=== PATIENT | male | born 1995 ===

== ENCOUNTER 2025-06-21 06:44 | Emergency (ER) | payer OTHER, SELFPAY ==
[2025-06-21 06:53] VITALS: BP 160/91; PULSE 80; RESP 16; TEMP 36.1; O2SAT 98; BMI 43.4
--- NOTE | 2025-06-21 07:06 | ED_ITS ---
HPI - Abdominal Pain General Chief Complaint: Abdominal Pain Stated Complaint: Abd Pain Time Seen by Provider: 06/21/25 07:06 Source: patient Mode of arrival: ambulatory Limitations: no limitations History of Present Illness ED Provider: HPI narrative: This is a 29-year-old male reports history of GI issues when he was younger, presenting with direct epigastric pain started in the morning did not get better with Tums, ate pizza with jalapeno peppers. No fevers or chills no chest pain no shortness of breath. No nausea no vomiting no hematemesis or hematochezia. Related Data Previous Rx's ?Medication ?Instructions ?Recorded famotidine 40 mg tablet 40 mg PO BEDTIME #30 tabs ondansetron 4 mg disintegrating 4 mg PO Q8H PRN nausea and 06/21/25 tablet vomiting #4 tabs sucralfate 1 gram tablet (Carafate) 1 g PO Q6H 7 days #28 tabs 06/21/25 Allergies Allergy/AdvReac Type Severity Reaction Status Date / Time No Known Allergies Allergy Verified 06/21/25 06:55 Review of Systems Constitutional: Reports as per [facility] Social History Social History Advance Directives: No Advance Directives Information Provided: Yes Physical Exam ED Vital Signs: Vital Signs - 24 hr 06/21/25 06:53 06/21/25 09:30 Temperature 97 F 97.7 F Pulse Rate 80 56 Respiratory Rate 16 18 Blood Pressure 160/91 H 123/70 Pulse Oximetry 98 97 Oxygen Delivery Method Room Air Room Air BMI result Body Mass Index 43.4 Const Other: * Gen: ?Overall well-appearing patient * HEENT: PERRLA, EOMI, MMM, * Neck: Supple, no LAD * CV: RRR, no obvious murmurs appreciated * Resp: ?No wheezing rales rhonchi no stridor moving air well * Abd: ?Bowel sounds are present, minimal epigastric tenderness no rebound no rigidity * MSK: FROM, strength 5/5 all extremities * Skin: Warm, dry, intact, * Neuro: ?Alert and oriented x3, moving upper and lower extremities symmetrically, no obvious facial asymmetry noted Medical Decision Making Medical Decision Making [facility] Narrative: Patient is presenting with fairly isolated epigastric discomfort due to spicy food before bedtime, consideration for workup as below, did not feel further imaging such as ultrasound or CAT scan is indicated we will medicate, and we will re-evaluate. No hematemesis or hematochezia reported to suspect upper GI bleed. 9:29 AM 06/21/2025 (Dr. Sohail aHll): Patient did not feel better with p.o. meds advanced to IV meds and fluids blood work reassuring 10:48 AM 06/21/2025 (Dr. Sohail Hall): Patient re-evaluated, he is feeling better, see my discharge instructions, abdominal exam is benign Differential Diagnosis Differential Diagnoses: The differential diagnosis associated with the presentation includes (Cholecystitis, pancreatitis, hepatitis, gastritis, cholangitis, choledocholithiasis, SBO, ACS) Admission/Observation Consideration of admission/observation: Escalation of care including admission/observation considered Lab Data 06/21/25 07:28 06/21/25 07:28 Labs: Lab Results 06/21/25 Range/Units 07:28 WBC 6.3 (4.8-10.8) X10*3/uL RBC 4.71 (4.60-5.80) X10*6/uL Hgb 14.8 (14.0-18.0) g/dl Hct 41.1 L (42.0-52.0) % MCV 87.3 (80.0-98.0) fL MCH 31.4 (27.0-33.0) pg MCHC 36.0 (31.0-36.0) g/dl RDW 12.7 (11.0-16.0) % Plt Count 185 (160-400) X10*3/uL MPV 9.9 (9.4-12.4) fL Immature Gran % (Auto) 0.3 (0.0-0.4) % Neut % (Auto) 57.9 (45-73) % Lymph % (Auto) 31.3 (20-40) % [place] % (Auto) 8.1 (2-11) % Eos % (Auto) 1.9 (0-4) % Baso % (Auto) 0.5 (0-2) % Lymph # (Auto) 2.0 (1.2-4.9) X10*3/uL [place] # (Auto) 0.5 (0.1-1.2) X10*3/uL Eos # (Auto) 0.1 (0.0-0.4) X10*3/uL Baso # (Auto) 0.0 (0.0-0.2) X10*3/uL Abs Immat Gran (auto) 0.02 (0.00-0.03) X10*3/uL Absolute Neuts (auto) 3.6 (2.0-8.3) x10*3/uL Absolute Nucleated RBC 0.000 (0.0-0.012) X10*3/uL Nucleated RBC % (auto) 0.0 (0.0-0.2) /100WBC Sodium 138 (135-145) mmol/L Potassium 4.0 (3.3-5.1) mmol/L Chloride 109 H (96-108) mmol/L Carbon Dioxide 23 (22-29) mmol/L Anion Gap 10 L (12-20) BUN 31 H (9-16) mg/dL Creatinine 1.30 (0.5-1.4) mg/dL Estim Creat Clear Calc 124.0 Estimated GFR > 60 Random Glucose 153 H (60-115) mg/dL Calcium 8.7 (8.4-10.2) mg/dL Total Bilirubin 0.5 (0.0-1.0) mg/dL AST 81 H (5-37) U/L ALT 72 H (0-40) U/L Alkaline Phosphatase 114 (39-117) U/L Total Protein 6.7 (6.5-8.0) g/dL Albumin 4.1 (3.5-5.0) g/dL Lipase 34 (8-78) U/L Tests considered The following testing was considered but not selected: CAT scan abdomen and pelvis with IV contrast Prescription Management I considered prescription management with: Pain Medication Medications Administered Discontinued Medications Generic Name Dose Route Start Last Admin Trade Name Freq PRN Reason Stop Dose Admin Al Hydroxide/Mg Hydroxide 30 ml 06/21/25 07:19 06/21/25 07:29 Magnesium Hydrox/Alum Hydrox 30 Ml Oral.Susp PO 06/21/25 07:20 30 ml ONCE ONE Administration Belladonna Alkaloids/Phenobarbital 10 ml 06/21/25 07:19 06/21/25 07:30 Phenobarb/Hyoscy/Atropine/Scop 10 Ml Elixir PO 06/21/25 07:20 10 ml ONCE ONE Administration Famotidine 40 mg 06/21/25 09:10 06/21/25 09:19 Famotidine/Pf 20 Mg/2 Ml Vial IVPUSH 06/21/25 09:11 40 mg ONCE ONE Administration Sodium Chloride 1,000 mls @ 999 mls/hr 06/21/25 09:15 06/21/25 10:20 Ns IV 06/21/25 10:15 Infused .Q1H1M SERA Infusion Acetaminophen 1,000 mg in 100 mls @ 400 mls/hr 06/21/25 09:10 06/21/25 09:40 Ofirmev IV 06/21/25 09:24 Infused ONCE ONE Infusion Ketorolac Tromethamine 15 mg 06/21/25 09:10 06/21/25 09:19 Ketorolac Tromethamine 15 Mg/Ml Vial IVPUSH 06/21/25 09:11 15 mg ONCE ONE Administration Lidocaine HCl 15 ml 06/21/25 07:19 06/21/25 07:29 Lidocaine Hcl Viscous 2 % 15 Ml Solution PO 06/21/25 07:20 15 ml ONCE ONE Administration Sucralfate 1 gm 06/21/25 07:19 06/21/25 07:29 Sucralfate Oral Suspension 1 Gm/10 Ml Oral.Susp PO 06/21/25 07:20 1 gm ONCE ONE Administration Discharge Plan Discharge Clinical Impression: Abdominal pain, acute, epigastric Patient Disposition: Home, Self-Care Instructions: Epigastric Pain (ED) Additional Instructions: Take Carafate 20 minutes before any meals for the next 1 week, I discussed that it is good to eat and regular basis and not keep the stomach empty but make sure that you stick to the diet that we discussed, and famotidine before bedtime out just continue taking it as for acid suppression, Zofran use as needed for nausea and vomiting Stay well hydrated, worsening issues or concerns come back to the ER Prescriptions: New famotidine 40 mg tablet 40 mg PO BEDTIME Qty: 30 0RF ondansetron 4 mg tablet,disintegrating 4 mg PO Q8H PRN (Reason: nausea and vomiting) Qty: 4 0RF sucralfate [Carafate] 1 gram tablet 1 g PO Q6H 7 Days Qty: 28 0RF Print Language: Khmer
[2025-06-21] MEDS: Sucralfate Oral Suspension 1 GM/10 ML ORAL.SUSP PO (07:29)
[2025-06-21] MEDS: Lidocaine HCl Viscous 2 % 15 ML SOLUTION PO (07:29)
[2025-06-21] MEDS: Magnesium Hydrox/Alum Hydrox 30 ML ORAL.SUSP PO (07:29)
[2025-06-21] MEDS: PHENobarb/Hyoscy/Atropine/Scop 10 ML ELIXIR PO (07:30)
[2025-06-21 07:33] LABS: MANUAL DIFF FLAG NO
[2025-06-21 07:38] LABS: Hematocrit 41.1 % (42.0-52.0); Hemoglobin 14.8 g/dl (14.0-18.0); Imm Gran Abs Auto 0.02 X10*3/uL (0.00-0.03); Imm Gran Pct Auto 0.3 % (0.0-0.4); Lymphocytes Absolute Auto 2.0 X10*3/uL (1.2-4.9); Mean Corpuscular HGB Conc 36.0 g/dl (31.0-36.0); Mean Corpuscular Hemoglobin 31.4 pg (27.0-33.0); Mean Corpuscular Volume 87.3 fL (80.0-98.0); NRBC Abs Auto 0.000 X10*3/uL (0.0-0.012); NRBC Pct Auto 0.0 /100WBC (0.0-0.2); Platelet Count 185 X10*3/uL (160-400); Red Blood Count 4.71 X10*6/uL (4.60-5.80); White Blood Count 6.3 X10*3/uL (4.8-10.8)
[2025-06-21 07:47] LABS: Alanine Aminotransferase 72 U/L (0-40); Albumin Level 4.1 g/dL (3.5-5.0); Alkaline Phosphatase 114 U/L (39-117); Anion Gap 10 (12-20); Aspartate Amino Transferase 81 U/L (5-37); Blood Urea Nitrogen 31 mg/dL (9-16); Calcium 8.7 mg/dL (8.4-10.2); Carbon Dioxide 23 mmol/L (22-29); Chloride 109 mmol/L (96-108); Creatinine Clr Calc Pharmacy 124.0; Estimated Glomerular Filt Rate > 60; Lipase 34 U/L (8-78); Potassium 4.0 mmol/L (3.3-5.1); Sodium 138 mmol/L (135-145); Total Protein 6.7 g/dL (6.5-8.0)
[2025-06-21 09:30] VITALS: BP 123/70; PULSE 56; RESP 18; TEMP 36.5; O2SAT 97
--- NOTE | 2025-06-21 09:31 | PC.NURSE ---
Pt alerting staff that his pain had returned, IV placed and medications given per DEC. Vitals obtained, and documented. Call tracy within reach at this time. Pt reports he does not drinking ETOH, but is awaiting a liver study test this month with his PCP
[2025-06-21 11:09] VITALS: BP 123/70; PULSE 56; RESP 18; TEMP 36.5; O2SAT 97
== END 2025-06-21 11:10 | disposition home or self-care (01) ==
PROVIDERS: Emergency Provider Emergency Medicine
DX: R10.9 Unspecified abdominal pain (principal); R10.13 Epigastric pain
CPT/HCPCS: 36415; 80053; 83690; 85025; 96361; 96374; 96375; 99284; 99285; J0131; J1308; J1885